=== PATIENT | male | born 2000 | race Caucasian/White ===

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

== ENCOUNTER 2024-05-27 00:52 | Emergency (ER) | payer MEDICAID, SELFPAY ==
--- OUTSIDE RECORDS SUMMARY | 2024-05-27 00:54 | XMS_ITS | Continuity of Care Document ---
Author Organization [facility] Address [address] [place] [address] [address] [place] [address] Phone Care Team Providers Care Bag Hanger Name Role Phone Palm OD, Zac Unavailable Unavailable Procedures Procedure Date Eye Exam, New Patient Refraction Advance Directives Directive Yes / No Effective Date File Name No Information Encounters Encounter Description Practice Location Reason(s) For Visit Diagnoses Date Provider Providers Copied on Encounter [facility], [address], [place], [place], [id number], [place] tel:[phone] [facility] No Information [phone] Palm OD Zac. [address] , [address], [place], [address], [place]. tel:[phone] Family History Family Member Type Diagnosis Age At Onset No Information Payers Payer name Insurance type Covered green party ID Authoriza tirudy(s) Medicaid [facility] [id number] Social History Type Description Quantity Date Captured Comments Sex Male Smoking Status No Information Chief Complaint And Reason For Visit No Information Reason For Referral Reason For Referral No Information History Of Present Illness Encounter Date Complaint History Of Prese nt Illness No Information Functional Status Date Functional Assessmen t No Information Instructions Date Instruction Additional Infor mation No Information Assessments Type Assessment Date No Information Patient Care Teams Name Effective Dates (start - stop) Status Members No Information
--- OUTSIDE RECORDS SUMMARY | 2024-05-27 00:54 | XMS_ITS | Clinical Summary ---
Author Organization [facility] Address [address] [place] [address] Care Team Providers Care Channel Sales Director Name Role Phone Unavailable Primary Care Provider Unavailabl e Social History Tobacco Use Types Packs/Day Years Used Date Smoking Tobacco: Never Assessed Sex and Gender Information Value Date Recorded Sex Assigned at Not on file Legal Sex Male 7:53 PM CDT Gender Identity Not on file Sexual Orientation Not on file Plan of Treatment Health Maintenance Due Date Last Done Comments Annual Physical 2005 HPV Vaccines (1 - Male 3-dos e series) 2017 Meningococcal B Vaccine (1 o f 2 - Standard) 2018 Hepatitis C 2020 DTaP, Tdap and Td Vaccines ( 1 - Tdap) 2021 Hepatitis B Vaccines (1 of 3 - 19+ 3-dose series) 2021 COVID-19 Vaccine (1 - 2023-2 5 season) 2023 Influenza Adult (#1) 2023 Meningococcal Vaccine Aged Out No twin arlene eligible based on patient's age to complete this topic Pneumococcal Vaccine: Pediat rics (0 to 5 Years) and At-Risk Patients (6 to 64 Years) Aged Out No longer eligible b ased on patient's age to complete this topic RSV Immunizations Under 20 Months Aged Out No longer eligible based on patient's age to complete this topic
--- NOTE | 2024-05-27 01:09 | PC.NURSE ---
edp dr. Mckeon states that patient does not need to change into green scrubs at this time.
[2024-05-27 01:20] VITALS: BP 173/98; PULSE 103; RESP 20; TEMP 37.4; O2SAT 100
--- NOTE | 2024-05-27 01:26 | ED_ITS ---
HPI - Psych General Chief Complaint: Psychiatric Symptoms Stated Complaint: SI Time Seen by Provider: 05/27/24 00:59 History of Present Illness HPI Narrative: Patient presents with recent suicidal ideation, which is now resolved. Patient earlier had been having thoughts about hurting himself with a knife but he denies any suicidal ideation now. Has never had to be hospitalized before, when he was in middle school he did have an episode of self-harm. Related Data Home Medications ?Medication ?Instructions ?Recorded ?Confirmed ?Last Taken ?Type No Home Medications 05/27/24 05/27/24 Unknown History Allergies Allergy/AdvReac Type Severity Reaction Status Date / Time No Known Allergies Allergy Verified 05/27/24 00:53 Review of Systems 2 Review of Systems: All systems reviewed & are unremarkable except as noted in HPI and below PMFSH Social History Social History Substance use type: does not use Exam 2 Narrative: EXAMINATION OF ORGAN SYSTEMS/BODY AREAS: Constitutional: Vital signs per nursing GENERAL:[No acute distress, non-toxic appearing.] HEAD: Normal with no signs of head trauma. EYES: EOMI, conjunctiva normal ENT: Hearing grossly intact LUNGS: Nonlabored breathing. HEART: [Regular rate and rhythm] ABD: No distension EXT: Normal range of motion SKIN: [No rashes or lesions.] NEURO: [Alert and oriented x 3. No gross focal sensory or strength deficits.] PSYCH: Normal affect; calm and cooperative here Course Vital Signs Vital signs: Vital Signs Temperature 99.3 F 05/27/24 01:20 Pulse Rate 103 H 05/27/24 01:20 Respiratory Rate 20 05/27/24 01:20 Blood Pressure 173/98 H 05/27/24 01:20 Pulse Oximetry 100 05/27/24 01:20 Oxygen Delivery Room Air 05/27/24 01:20 Temperature 99.3 F 05/27/24 01:20 Pulse Rate 103 H 05/27/24 01:20 Respiratory Rate 20 05/27/24 01:20 Blood Pressure 173/98 H 05/27/24 01:20 Pulse Oximetry 100 05/27/24 01:20 Oxygen Delivery Room Air 05/27/24 01:20 MDM - Psych MDM Narrative Medical decision making narrative: Patient presenting with potential suicidal ideation though he denies that now; had called his ex-gf and found out she was seeing someone new, so he got upset and told her he was going to stab himself, and she then called the police. He says he just said that in the heat of the moment but has no actual plan or desire to hurt himself at this time; that he has people he cares about who care about him including his aunt who he is planning on meeting/seeing in the morning. Well-appearing here in no distress. Medically clear for psychiatric evaluation at this time. He was evaluated by psych/SAS; they do feel he is stable for discharge with safety plan. Patient still denying SI at this time. Will be given follow up with mental health services and that he can/should return to the ER immediately if he is to start having any further thoughts of SI/HI or other concerning issues. Lab Data 05/27/24 01:16 05/27/24 01:16 Labs: Lab Results 05/27/24 Range/Units 01:16 WBC 5.8 (4.5-10.0) K/mm3 RBC 5.45 (4.6-6.20) M/mm3 Hgb 15.5 (14.0-18.0) g/dL Hct 48.1 (42.0-52.0) % MCV 88.3 (80-100) fl MCH 28.4 (26-34) pg MCHC 32.2 (32-36) g/dl RDW 12.1 (11.5-14.5) % Plt Count 135 L (150-375) k/mm3 MPV 11.6 H (7.4-10.4) fl Immature Gran % (Auto) 0.2 (0-0.5) % Neut % (Auto) 71.1 (45.5-73.1) % Lymph % (Auto) 20.1 (18.3-44.2) % Marinette % (Auto) 8.0 (2.6-8.5) % Eos % (Auto) 0.3 (0-4.4) % Baso % (Auto) 0.3 (0.2-1.2) % Lymph # (Auto) 1.16 (0.9-3.2) K/mm3 Marinette # (Auto) 0.5 (0.1-0.6) K/mm3 Eos # (Auto) 0.0 (0-0.3) K/mm3 Baso # (Auto) 0.0 (0.0-0.1) K/mm3 Abs Immat Gran (auto) 0.01 (0.00-0.031) K/mm3 Absolute Neuts (auto) 4.1 (1.3-6.7) K/mm3 Absolute Nucleated RBC 0.000 (0.0-0.012) K/mm3 Nucleated RBC % 0.0 (0.0-0.2) % % Immature Plt Fraction 7.7 (0.9-11.2) % Sodium 144 (137-145) mmol/L Potassium 4.1 (3.4-5.0) mmol/L Chloride 105 (98-107) mmol/L Carbon Dioxide 24 (22-30) mmol/L Anion Gap 15 H (4-12) mmol/L BUN 8 L (9-20) mg/dL Creatinine 0.78 (0.7-1.3) mg/dL Estim Creat Clear Calc 160 ml/min Estimated GFR > 60 (59 - ) Glucose 117 H (65-110) mg/dL Calcium 10.2 (8.4-10.2) mg/dL Total Bilirubin 0.6 (0.2-1.3) mg/dL AST 21 (17-59) U/L ALT 26 (6-50) U/L Alkaline Phosphatase 77 (38-126) U/L Total Protein 9.0 H (6.3-8.2) g/dL Albumin 5.6 H (3.5-5.1) g/dL TSH (Reflex) 1.830 (0.465-4.68) uIU/mL Urine Color Yellow (Yellow) Urine Appearance Clear (Clear) Urine pH 6.0 (5.0-9.0) Ur Specific Seneca 1.031 (1.001-1.035) Urine Protein Trace (Negative) mg/dL Urine Glucose (UA) Negative (Negative) mg/dL Urine Ketones Trace H (Negative) mg/dL Ur Blood (Man) Trace (Negative) Urine Nitrate Negative (Negative) Urine Bilirubin Negative (Negative) Urine Urobilinogen 1.0 (<2.0) mg/dL Add Ur Microanalysis Reviewed Leukocyte Esterase Rfl Negative (Negative) TIKI/UL Urine RBC 6-10 H (0-2) /hpf Urine WBC 0-5 (0-3) /hpf Ur Squamous Epith Cells None seen (Few) /hpf Urine Bacteria None seen /hpf Urine Casts 3-5 Urine Opiates Screen Negative (Negative) Urine Methadone Screen Negative (Negative) Ur Barbiturates Screen Negative (Negative) Ur Phencyclidine Scrn Negative (Negative) Ur Amphetamine Screen Negative (Negative) U Benzodiazepines Scrn Negative (Negative) Urine Cocaine Screen Negative (Negative) U Cannabinoids Screen Negative (Negative) Ethyl Alcohol < 10 (<10) mg/dL Influenza A (RT-PCR) Negative (Negative) Influenza B (RT-PCR) Negative (Negative) RSV (RT-PCR) Negative (Negative) SARS-CoV-2 RNA (RT-PCR) Negative (Negative) Discharge Plan Discharge Clinical Impression: Suicidal thoughts Patient Disposition: Home, Self-Care Condition: Stable Instructions: Suicide Prevention (ED) Additional Instructions: Please follow up with mental health services. If you start having thoughts about hurting yourself or anyone else, or anything else concerning, please call 911 or go straight to the ER. Patient Language: Frisian Prescriptions: No Action No Home Medications Follow-up/Referrals: PHYSICIAN NOT ON STAFF,NONSTAFF [Primary Care Provider] - [facility] [Outside] - 2 Days
--- NOTE | 2024-05-27 01:29 | PC.NURSE ---
patient placed in green scrubs and personal belongings removed from patient and placed in locked cabinet with patient labels.
[2024-05-27 01:47] LABS: Ethanol < 10 mg/dL (<10)
[2024-05-27 01:48] LABS: Alanine Aminotransferase 26 U/L (6-50); Albumin Level 5.6 g/dL (3.5-5.1); Alkaline Phosphatase 77 U/L (38-126); Anion Gap 15 mmol/L (4-12); Aspartate Amino Transferase 21 U/L (17-59); Bilirubin,Total 0.6 mg/dL (0.2-1.3); Blood Urea Nitrogen 8 mg/dL (9-20); Calcium 10.2 mg/dL (8.4-10.2); Carbon Dioxide 24 mmol/L (22-30); Chloride 105 mmol/L (98-107); Estimated CRCL calculation 160 ml/min; Estimated Glomerular Filt Rate > 60; Glucose 117 mg/dL (65-110); Potassium 4.1 mmol/L (3.4-5.0); Sodium 144 mmol/L (137-145)
[2024-05-27 01:57] LABS: Barbiturate Screen Urine Negative (Negative); Basophils Percent Auto 0.3 % (0.2-1.2); Benzodiazepines Screen Urine Negative (Negative); Eosinophils Percent Auto 0.3 % (0-4.4); Hematocrit 48.1 % (42.0-52.0); Hemoglobin 15.5 g/dL (14.0-18.0); Immature Granulocyte Absolute 0.01 K/mm3 (0.00-0.031); Immature Granulocyte Percent A 0.2 % (0-0.5); Immature Platelet Fraction Pct 7.7 % (0.9-11.2); Lymphocytes Absolute Auto 1.16 K/mm3 (0.9-3.2); Lymphocytes Percent Auto 20.1 % (18.3-44.2); Mean Corpuscular HGB Conc 32.2 g/dl (32-36); Mean Corpuscular Hemoglobin 28.4 pg (26-34); Mean Corpuscular Volume 88.3 fl (80-100); Mean Platelet Volume 11.6 fl (7.4-10.4); Monocytes Absolute Auto 0.5 K/mm3 (0.1-0.6); Neutrophils Absolute Auto 4.1 K/mm3 (1.3-6.7); Neutrophils Percent Auto 71.1 % (45.5-73.1); Platelet Count Result 135 k/mm3 (150-375); Red Blood Count 5.45 M/mm3 (4.6-6.20); Red Cell Distribution Width 12.1 % (11.5-14.5); White Blood Count 5.8 K/mm3 (4.5-10.0)
[2024-05-27 01:59] LABS: Amphetamine Screen Urine Negative (Negative); Cannabinoid Screen Urine Negative (Negative); Cocaine Screen Urine Negative (Negative); Methadone Screen Urine Negative (Negative); Opiate Screen Urine Negative (Negative); Phencyclidine Screen Urine Negative (Negative)
[2024-05-27 02:07] LABS: Influenza A QL RT-PCR Negative (Negative); Influenza B QL RT-PCR Negative (Negative); RSV RNA, RT-PCR Negative (Negative); SARS-CoV-2 RNA PCR Negative (Negative)
[2024-05-27 02:13] LABS: Add Urine Microscopic? YES; Appearance Urine Clear (Clear); Bacteria Urine None Seen /hpf; Bilirubin Urine Negative (Negative); Blood Urine Trace (Negative); Color Urine Yellow (Yellow); Glucose Urine UA Negative (Negative); Ketones Urine Trace mg/dL (Negative); Leukocyte Esterase Ur Negative LEU/UL (Negative); Need Manual Microscopic Reviewed; Nitrate Urine Negative (Negative); Protein Urine Trace mg/dL (Negative); Specific Grav Ur 1.031 (1.001-1.035); Squamous Epithelial Cell Urine None Seen /hpf (Few); WBC Urine 0-5 /hpf (0-3)
--- OUTSIDE RECORDS SUMMARY | 2024-05-27 02:28 | XMS_ITS | Continuity of Care Document ---
Author Organization [facility] Address [address] [place] [address] [address] [place] [address] Phone Care Team Providers Care Industrial Safety And Health Specialist Name Role Phone Palm OD, Zac Unavailable Unavailable Procedures Procedure Date Eye Exam, New Patient Refraction Advance Directives Directive Yes / No Effective Date File Name No Information Encounters Encounter Description Practice Location Reason(s) For Visit Diagnoses Date Provider Providers Copied on Encounter [facility], [address], [place], [place], [id number], [place] tel:[phone] [facility] No Information 7-200 9 Palm OD Zac. [address], [place], [address], [place]. tel:[phone] Family History Family Member Type Diagnosis Age At Onset No Information Payers Payer name Insurance type Covered alliance party ID Authoriza tirudy(s) Medicaid [facility] [id number] Social History Type Description Quantity Date Captured [...]
--- OUTSIDE RECORDS SUMMARY | 2024-05-27 02:28 | XMS_ITS | Clinical Summary ---
Author Organization [facility] Address [address] [place] [id number] Care Team Providers Care Collection Development Librarian Name Role Phone Unavailable Primary Care Provider [...]
== END 2024-05-27 04:37 | disposition home or self-care (01) ==
PROVIDERS: Emergency Provider Emergency Medicine
DX: R45.851 Suicidal ideations (principal); Z11.52 Encounter for screening for COVID-19
CPT/HCPCS: 36415; 80053; 80307; 81001; 82077; 84443; 85025; 85055; 87637; 99284